=== PATIENT | female | born 1990 | race Two or more races ===

== ENCOUNTER 2017-06-11 06:00 | Inpatient (IN) | payer SELFPAY ==
[~2017-06-11] VITALS: Ht 188 cm; Wt 178.0 kg
[2017-06-11] MEDS ORDERED: CEFAZOLIN 2 GM/50 ML (PMX) 50 ML IVPB ONE (07:11)
[2017-06-11] MEDS ORDERED: MISOPROSTOL 200 MCG TAB PR PRN ×2 (07:30→12:30)
[2017-06-11] MEDS ORDERED: CARBOPROST 250 MCG INJ IM PRN ×2 (07:30→12:30)
[2017-06-11] MEDS ORDERED: METHYLERGONOVINE 0.2 MG INJ IM PRN ×2 (07:30→12:30)
[2017-06-11] MEDS ORDERED: CEFAZOLIN 2 GM/50 ML (PMX) 50 ML IV SCH (07:30)
[2017-06-11] MEDS ORDERED: OXYTOCIN 30 UNITS/LR 500 ML IV SCH (07:30)
[2017-06-11] MEDS ORDERED: OXYTOCIN 30 UNITS/LR 500 ML IV PRN ×2 (07:30→12:30)
[2017-06-11] MEDS ORDERED: LACTATED RINGER'S 1,000 ML IV SCH (07:38)
[2017-06-11 07:40] VITALS: Ht 188 cm; Wt 178.0 kg
[2017-06-11 07:41] LABS: BASOPHILS % 0.3 % (0.0-2.0); EOSINOPHILS # 0.1 10^3/ul (0.0-0.5); EOSINOPHILS % 1.8 % (0.0-7.0); HEMATOCRIT 35.5 % (37.0-47.0); HEMOGLOBIN 11.3 g/dl (12.0-16.0); LYMPHOCYTES # 1.9 10^3/ul (0.8-2.9); LYMPHOCYTES % 31.5 % (15.0-51.0); MEAN CORPUSCULAR HEMOGLOBIN 28.1 pg (29.0-33.0); MEAN CORPUSCULAR HGB CONC 31.8 g/dl (32.0-37.0); MEAN CORPUSCULAR VOLUME 88.3 fl (82.0-101.0); MEAN PLATELET VOLUME 10.8 fl (7.4-10.4); MONOCYTE # 0.5 10^3/ul (0.3-0.9); MONOCYTES % 7.7 % (0.0-11.0); NEUTROPHIL # 3.6 10^3/ul (1.6-7.5); PLATELET COUNT 167 10^3/UL (140-415); RED BLOOD COUNT 4.02 10^6/ul (4.20-5.40); RED CELL DISTRIBUTION WIDTH 15.6 % (11.5-14.5); WHITE BLOOD COUNT 6.1 10^3/ul (4.8-10.8)
[2017-06-11 07:43] VITALS: BP 121/80; PULSE 74; RESP 18
[2017-06-11 07:45] LABS: INR 0.89; PT RATIO 0.9
[2017-06-11] MEDS ORDERED: PREN1TAB79 PO (07:47)
[2017-06-11] MEDS ORDERED: morphine SULFATE/PF (10 MG/10 ML) INJ ONE (07:57)
[2017-06-11] MEDS ORDERED: ONDANSETRON 4 MG INJ ONE (07:57)
[2017-06-11] MEDS ORDERED: METOCLOPRAMIDE 10 MG INJ ONE (07:57)
[2017-06-11] MEDS ORDERED: OXYTOCIN 30 UNITS/LR 500 ML IV ONE ×2 (07:57→09:18)
[2017-06-11] MEDS ORDERED: CITRIC ACID/SODIUM CITRATE 15 ML CUP PO ONE (08:00)
[2017-06-11] MEDS ORDERED: CITRIC ACID/SODIUM CITRATE 15 ML CUP ONE (08:01)
[2017-06-11] MEDS ORDERED: KETOROLAC 30 MG INJ ONE (08:10)
--- NOTE | 2017-06-11 09:46 | HP ---
Date/Time of Note Date/Time of Note DATE: 06/11/17 TIME: 09:39 OB - History Hx of Present Free Text/Dictation 27 y.o who had x1 c/s here at 39w for elective repeat c/s patient was [place] at 36w [place] according to her OB she had unevenful course. admitted for elective repeat C/S Chief Complaint: for elective c/s Estimated Due Date: Jun 18, 2017 : 2 Para: 1 Spontaneous : 0 Therapeutic : 0 Care: Limited Care Ultrasounds: Normal mid trimester US Obstetrical Complications: None Medical Complications: None Past Family/Social History * Past Medical, Surgical, Family and Obstetric Histories reviewed from chart. Blood Type: O+ Rubella: immune RPR/VDRL: Unknown GBS Status: Unknown HBsAG: Negative OB Admission Exam Vital Signs Vital Signs Vital Signs Date Time Temp Pulse Resp B/P Pulse Ox O2 Delivery O2 Flow Rate FiO2 06/11/17 07:43 97.8 74 18 121/80 Room Air Physical Exam HEENT: WNL Heart: Rhythm Normal Lungs: Clear, Equal Abdomen: WNL Extremities: Normal Reflexes: Normal Cervical Dilatation: None Effacement: 0% Station: -3 Membranes: Intact Amniotic Fluid: Unevaluable Heart Rate: 140's Accelerations: Accelerations Present Decelerations: Variable Decelerations Varibility: Moderate Contractions on Admission: None Last 72 hours Lab Results CBC & BMP 06/11/17 06:35 OB Assessment/Plan Reason for admission: section Other Assessment: IUP 39w with previous section Plan: Section PAIGE DELVALLE MD Jun 11, 2017 09:46
[2017-06-11] MEDS ORDERED: morphine (1 MG/ML) 10ML SYRINGE IV PRN ×3 (10:00)
[2017-06-11] MEDS ORDERED: NALOXONE (0.4 MG/ML) INJ IV PRN (10:00)
[2017-06-11] MEDS ORDERED: DIPHENHYDRAMINE 50 MG INJ IV PRN ×3 (10:00→12:30)
[2017-06-11] MEDS ORDERED: morphine 4 MG/ML VIAL IV PRN (10:00)
[2017-06-11] MEDS ORDERED: morphine 2 MG INJ IV PRN ×2 (10:00)
[2017-06-11] MEDS ORDERED: ONDANSETRON 4 MG INJ IV PRN ×3 (10:00→12:30)
--- NOTE | 2017-06-11 10:11 | OPR ---
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 Estimated Blood Loss: 600 - 700 mls Specimen(s) none Grafts/Implant(s) none Complication(s) none Pt Condition post procedure: stable Disposition: PACU Procedure Description under the proper spinal aneshesia paptient was placed in frog position hoyos catheter was inserted under the sterile condition,repositioned to supine patient preped and draped i a transverse incision was made along the incisional scar scar tissue was excised incision was carried down to fascia which was incised in the length of incision. fascial flap was made two rectus muscle was splitted and peritoneal cavity was entered. low portion of uterus was exposed and a transverse incision was made on visceral peritoneum above the uterovisical reflection and incisioin was carried down layer by layer and membrane was ruptured and clear amniotic fluid noted. normal male was born from LOT with [id number] cord which was relatively loose and handed to respiratory care personel after delayed cord clamping done, after the nostrils were cleaned. , cord blood was obtained and placenta was delivered mannually and cavity was cleaned. uterine muscle was closed with#1monocryl 0 ch gut and uterus was relocated into abdominal cavity after irrigation was done incision was cked intact. parietal peritoneum ws closed with 0ch gut and muscle closed with 0ch gut fascia closed with #1vicryl subcut closed with 00 plain gut skin closed with 000 monocryl in subcutaneous stritape on , pressure dressing on ebl 600cc PAIGE DELVALLE MD Jun 11, 2017 10:10
[2017-06-11 10:32] LABS: ADD UMIC NO; UR ASCORBIC ACID NEGATIVE (NEGATIVE); UR BILIRUBIN (Dip) NEGATIVE (NEGATIVE); UR BLOOD (Dip) NEGATIVE (NEGATIVE); UR CLARITY CLEAR (CLEAR); UR COLOR YELLOW (YELLOW); UR GLUCOSE (Dip) NEGATIVE (NEGATIVE); UR KETONES (Dip) NEGATIVE (NEGATIVE); UR LEUKOCYTE ESTERASE (Dip) NEGATIVE Leu/ul (NEGATIVE); UR NITRITE (Dip) NEGATIVE (NEGATIVE); UR SPECIFIC GRAVITY (Dip) 1.018 (1.003-1.030); UR TOTAL PROTEIN (Dip) NEGATIVE (NEGATIVE); UR UROBILINOGEN (Dip) NEGATIVE (NEGATIVE)
[2017-06-11 10:52] LABS: BARBITURATES Negative (NEGATIVE); BENZODIAZEPINES Negative (NEGATIVE); CANNABINOIDS Negative (NEGATIVE); COCAINE Negative (NEGATIVE); OPIATES Negative (NEGATIVE)
[2017-06-11 12:10] VITALS: BP 115/59; RESP 18
[2017-06-11] MEDS ORDERED: LANOLIN 7 GM TUBE TOP PRN (12:30)
[2017-06-11] MEDS ORDERED: ZOLPIDEM 5 MG TAB PO PRN (12:30)
[2017-06-11] MEDS ORDERED: OXYCODONE/ACETAMINOPHEN (5/325) TAB PO PRN (12:30)
[2017-06-11] MEDS: LACTATED RINGER'S 1,000 ML IV SCH (14:16)
[2017-06-11 15:30] VITALS: BP 116/56; PULSE 80; RESP 18
[2017-06-11] MEDS ORDERED: INFLUENZA VIRUS VACCINE 0.5 ML (DISPENSING) IM* ONE (17:30)
[2017-06-11 20:00] VITALS: BP 103/56; PULSE 83; RESP 17
[2017-06-11] MEDS: SENNA/DOCUSATE NA (8.6MG/50MG) TAB PO SCH (21:00)
[2017-06-12] VITALS: BP 106/59; PULSE 81; RESP 18
[2017-06-12 04:00] VITALS: BP 107/57; PULSE 81; RESP 17
[2017-06-12] MEDS: IBUPROFEN 600 MG TAB PO SCH ×4 (06:00→18:41)
[2017-06-12] MEDS: KETOROLAC 30 MG INJ IV PRN ×2 (06:01→06:58)
[2017-06-12 08:20] VITALS: BP 118/73; PULSE 74; RESP 18
[2017-06-12] MEDS: SENNA/DOCUSATE NA (8.6MG/50MG) TAB PO SCH ×2 (09:05→21:26)
[2017-06-12 10:01] LABS: BASOPHILS % 0.4 % (0.0-2.0); EOSINOPHILS % 0.4 % (0.0-7.0); HEMATOCRIT 31.3 % (37.0-47.0); HEMOGLOBIN 10.1 g/dl (12.0-16.0); LYMPHOCYTES # 1.3 10^3/ul (0.8-2.9); LYMPHOCYTES % 15.1 % (15.0-51.0); MEAN CORPUSCULAR HEMOGLOBIN 28.2 pg (29.0-33.0); MEAN CORPUSCULAR HGB CONC 32.3 g/dl (32.0-37.0); MEAN CORPUSCULAR VOLUME 87.4 fl (82.0-101.0); MEAN PLATELET VOLUME 10.9 fl (7.4-10.4); MONOCYTE # 0.5 10^3/ul (0.3-0.9); MONOCYTES % 5.9 % (0.0-11.0); NEUTROPHIL # 6.5 10^3/ul (1.6-7.5); NEUTROPHILS % 77.7 % (39.0-77.0); PLATELET COUNT 163 10^3/UL (140-415); RED BLOOD COUNT 3.58 10^6/ul (4.20-5.40); RED CELL DISTRIBUTION WIDTH 15.9 % (11.5-14.5); WHITE BLOOD COUNT 8.4 10^3/ul (4.8-10.8)
[2017-06-12] MEDS: LACTATED RINGER'S 1,000 ML IV SCH ×2 (10:35)
--- NOTE | 2017-06-12 11:45 | PN ---
Date/Time of Note Date/Time of Note DATE: 06/12/17 TIME: 11:43 OB Subjective Subjective Subjective passing flatus no c/o OB Objective Objective Objective vss afebrile abdomen soft wound dry fundus firm lochia min calf neg for tenderness OB Assessment/Plan Other Assessment: stable post RC/S #! Other plan: as ordered PAIGE DELVALLE MD Jun 12, 2017 11:45
[2017-06-12 16:15] VITALS: BP 108/57; PULSE 79; RESP 18
[2017-06-12 19:40] VITALS: BP 129/71; PULSE 77; RESP 18
[2017-06-12] MEDS: OXYCODONE/ACETAMINOPHEN (5/325) TAB PO PRN (19:50)
--- NOTE | 2017-06-12 21:20 | PN ---
Date/Time of Note Date/Time of Note DATE: 06/12/17 TIME: 21:19 Assessment/Plan VTE Prophylaxis VTE Prophylaxis Intervention: ambulation Lines/Catheters IV Catheter Type (from Nrsg): Peripheral IV Subjective 24 Hr Interval Summary Free Text/Dictation Anesthesia note A 27 yearfemale pod 1 s/ p duramorphbis doing fine. pain is controoled, no headache, back pain, sensory deficit, back psin, n/v. care per surgery Exam/Review of Systems Vital Signs Vitals Vital Signs Date Time Temp Pulse Resp B/P Pulse Ox O2 Delivery O2 Flow Rate FiO2 06/12/17 16:15 98.5 79 18 108/57 Room Air Intake and Output 06/11/17 06/11/17 06/12/17 15:00 23:00 07:00 Intake Total 125 ml 500 ml 375 ml Output Total 1300 ml 900 ml 1100 ml Balance -1175 ml -400 ml -725 ml Results Result Diagram: 06/12/17 0729 Results 24 hrs Laboratory Tests Test 06/12/17 07:29 White Blood Count 8.4 # Red Blood Count 3.58 L Hemoglobin 10.1 L Hematocrit 31.3 L Mean Corpuscular Volume 87.4 Mean Corpuscular Hemoglobin 28.2 L Mean Corpuscular Hemoglobin Concent 32.3 Red Cell Distribution Width 15.9 H Platelet Count 163 Mean Platelet Volume 10.9 H Neutrophils % 77.7 H Lymphocytes % 15.1 Monocytes % 5.9 Eosinophils % 0.4 Basophils % 0.4 Nucleated Red Blood Cells % 0.0 Neutrophils # 6.5 Lymphocytes # 1.3 Monocytes # 0.5 Eosinophils # 0.0 Basophils # 0.0 Nucleated Red Blood Cells # 0.0 Medications Medications Current Medications Oxycodone/ Acetaminophen (Percocet (5/ 325)) 1 tab Q4H PRN PO PAIN LEVEL 4-6 Last administered on 06/12/17 19:50; Admin Dose 1 TAB; Start 06/11/17 at 12: 30 Oxycodone/ Acetaminophen (Percocet (5/ 325)) 2 tab Q4H PRN PO PAIN LEVEL 7-10; Start 06/11/17 at 12:30 Ibuprofen (Motrin) 600 mg Q6 PO Last administered on 06/12/17 18:41; Admin Dose 600 MG; Start 06/11/17 at 18:00 Simethicone (Mylicon) 160 mg Q8H PRN PO DISTENSION/GAS/BLOATING; Start at 12:30 Senna/Docusate Sodium (Senokot-S) 1 tab BID PO Last administered on 06/12/17t 09:05; Admin Dose 1 TAB; Start 06/11/17 at 21:00 Diphtheria/ Tetanus/Acell Pertussis 0.5 ml 0.5 ml ONCE ONCE IM* ; Start at 09:00; Stop 06/14/17 at 09:01 Oxytocin/Lactated Ringer's 500 ml @ 0 mls/hr ONCE PRN IV For Hemorrhage Management; Start 06/11/17 at 12:30 Methylergonovine Maleate (Methergine) 0.2 mg ONCE PRN IM VAGINAL BLEEDING; Start 06/11/17 at 12:30 Carboprost Tromethamine (Hemabate) 250 mcg ONCE PRN IM VAGINAL BLEEDING; Start 06/11/17 at 12:30 Misoprostol (Cytotec) 1,000 mcg ONCE PRN [place] VAGINAL BLEEDING; Start 06/11/17 at 12:30 Diphenhydramine HCl (Benadryl) 25 mg Q6H PRN IV PRURITUS; Start 06/11/17 at 12 :30 Ondansetron HCl (Zofran Inj) 4 mg Q6H PRN IV NAUSEA AND/OR VOMITING; Start at 12:30 Zolpidem Tartrate (Ambien) 10 mg QHS PRN PO INSOMNIA; Start 06/11/17 at 12:30 ELMER ROLDAN MD Jun 12, 2017 21:20
[2017-06-13] MEDS: IBUPROFEN 600 MG TAB PO SCH ×4 (00:41→17:41)
[2017-06-13 04:30] VITALS: BP 110/66; PULSE 74; RESP 18
[2017-06-13 08:50] VITALS: BP 110/64; PULSE 81; RESP 18
[2017-06-13] MEDS: SENNA/DOCUSATE NA (8.6MG/50MG) TAB PO SCH ×2 (08:52→21:11)
[2017-06-13] MEDS ORDERED: INFLUENZA VIRUS VACCINE 0.5 ML (DISPENSING) IM* ONE (14:30)
[2017-06-13 16:35] VITALS: BP 110/67; PULSE 84; RESP 16
[2017-06-13 20:00] VITALS: BP 119/64; PULSE 75; RESP 18
[2017-06-13] MEDS: OXYCODONE/ACETAMINOPHEN (5/325) TAB PO PRN (21:44)
--- NOTE | 2017-06-13 22:48 | PN ---
Date/Time of Note Date/Time of Note DATE: 06/13/17 TIME: 22:46 OB Subjective Subjective Subjective no c/o OB Objective Objective Objective vss afebrile abdomen soft\wound dry lochia min calf neg for tenderness OB Assessment/Plan Other Assessment: satisfactory #2 R C/S Other plan: d/s home in am PAIGE DELVALLE MD Jun 13, 2017 22:48
[2017-06-14] MEDS: IBUPROFEN 600 MG TAB PO SCH ×3 (00:36→12:22)
[2017-06-14 04:00] VITALS: BP 119/69; PULSE 86; RESP 18
--- NOTE | 2017-06-14 05:33 | PD.PPDC ---
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 Diagnosis Final Diagnosis: s/p repeat section Condition Patient Condition: Stable Diet Diet: Resume Regular Diet Activity/Restrictions Activity: November Shower Restrictions: No Exercising No Lifting Minimize Stair-climbing No Sexual Activity Nothing in the Vagina No [place] No Tampons, douche Wound/Drain Care Instructions Wound/Drain Care Instructions: Wash with soap and water Keep clean and dry Follow-up Follow-up with Physician: 2, Week/Weeks Return to clinic for ASSISTANT PASTRY CHEF Instructions: Fever greater than 101 Chills Worsening abdominal pain Excessive Vaginal Bleeding More than 2 pads per hour Unable to tolerate diet OB Instructions: Breast Tenderness Depression Blurried Vision Headache Surgical Instructions: Incisional Drainage Incisional Redness PAIGE DELVALLE MD Jun 14, 2017 05:33
--- NOTE | 2017-06-14 06:22 | DS ---
Date/Time of Note Date/Time of Note DATE: 06/14/17 TIME: 06:20 Obstetrical Discharge Record Final Diagnosis Final Diagnosis: Term delivered Section Section: Repeat Complications Augmentation: No Induction: No Rupture of Membranes: No Condition on Discharge Physical Assessment Last Vitals: vss afebrile Voiding: Yes Bowel Movement: No Breast: Soft, non-tender Fundus: Firm Abdomen and Incision: soft wound dry Episiotomy: n/a Calf Tenderness: No Patient Condition: Stable PAIGE DELVALLE MD Jun 14, 2017 06:22
[2017-06-14 08:00] VITALS: BP 109/76; PULSE 76; RESP 20
[2017-06-14] MEDS ORDERED: DIPHTH/TET/ACEL PERTUSS (ADULT) 0.5 ML VIAL IM* ONE (09:00)
[2017-06-14] MEDS: SENNA/DOCUSATE NA (8.6MG/50MG) TAB PO SCH (09:41)
[2017-06-14] MEDS: OXYCODONE/ACETAMINOPHEN (5/325) TAB PO PRN (15:01)
== END 2017-06-14 15:55 | disposition home or self-care (01) | DRG 766 ==
LOC: L-D 06:00 → PP1 11:49
PROVIDERS: ADMIT Obstetrics & Gynecology; ATTEND Obstetrics & Gynecology
PROC: 10D00Z1 Extraction of Products of Conception, Low, Open Approach (ICD-10-PCS; principal; 2017-06-11 07:30)
PROC: 3E0234Z Introduction of Serum, Toxoid and Vaccine into Muscle, Percutaneous Approach (ICD-10-PCS; 2017-06-14)
DX: O34.211 Maternal care for low transverse scar from previous cesarean delivery (principal); O69.81X0 Labor and delivery complicated by cord around neck, without compression, not applicable or unspecified; Z37.0 Single live birth; Z3A.39 39 weeks gestation of pregnancy; Z23 Encounter for immunization
CPT/HCPCS: 80307; 81003; 85025; 85610; 85730; 86592; 86850; 86900; 86901; 87340; 90686; 90715; 99464; J0690; J1885; J2274; J2405; J2590; J2765; J7120